=== PATIENT | male | born 1980 | race Two or more races ===

== ENCOUNTER 2021-05-24 22:46 | Emergency (ER) | payer SELFPAY ==
[~2021-05-24] VITALS: Ht 190.5 cm; Wt 81.6 kg
[2021-05-25 03:24] VITALS: BP 145/84
[2021-05-25] MEDS ORDERED: LIDOCAINE 1% HCL (LOCAL ANESTH.) INJ 20ML MDV IJ ONE (03:30)
[2021-05-25] MEDS ORDERED: NEOMYCIN-BACITRACIN-POLYM UNITDOSE PKG TOP OINT TOP ONE (04:15)
== END 2021-05-25 04:28 | disposition home or self-care (01) ==
LOC: ER 22:46
DX: S60.453A Superficial foreign body of left middle finger, initial encounter (principal); W22.8XXA Striking against or struck by other objects, initial encounter; Y93.89 Activity, other specified; Y92.89 Other specified places as the place of occurrence of the external cause; Y99.8 Other external cause status
CPT/HCPCS: 73130; 99284; J2001